=== PATIENT | female | born 1980 | race Hispanic/Latino ===

== ENCOUNTER 2017-04-29 12:02 | Inpatient (IN) | payer BC, MEDICAID ==
[2017-04-29 12:06] VITALS: BMI 22.8
[2017-04-29] MEDS ORDERED: Sodium Chloride 0.9% 1,000 ML IV STA (12:25)
--- NOTE | 2017-04-29 12:28 | ED PDOC ---
Arrival/HPI - General Chief Complaint: Flu-like Symptoms Time Seen by Provider: 04/29/17 12:23 Historian: Patient - History of Present Illness Narrative History of Present Illness (Text): 04/29/17 12:24 36 year old female presents to the Emergency Department complaining of episodic vomiting x3 per day, productive cough with red phlegm, body aches, headache, and fever for 3 days. Patient states her pain is rated at 8/10. 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 Mccauley 04/29/17 13:18 Time/Duration: < week (3 days) Symptom Onset: Gradual Symptom Course: Unchanged Quality: Aching, Tightness Severity Level: 8 Context: Home Past Medical History - Provider Review Nursing Documentation Reviewed: Yes - Travel History Have you recently traveled outside [place] w/in the past 3 mons?: No - Past History Past History: No Previous - Infectious Disease Hx of Infectious Diseases: None - Tetanus Immunization Tetanus Immunization: Unknown - Past Medical History Past Medical History: No Previous - Gastrointestinal Hx Gastroesophageal Reflux: Yes - Genitourinary/Gynecological Other/Comment: endometriosis - Psychiatric Hx Substance Use: No - Past Surgical History Past Surgical History: No Previous - Surgical History Other/Comment: Laparoscopy - Anesthesia Hx Anesthesia: Yes Hx Anesthesia Reactions: No Hx Malignant Hyperthermia: No - Suicidal Assessment Feels Threatened In Home Enviroment: No Family/Social History - Physician Review Nursing Documentation Reviewed: Yes Family/Social History: No Known Family HX Smoking Status: Heavy Smoker > 10 Cigarettes Daily Hx Alcohol Use: No Hx Substance Use: No Hx Substance Use Treatment: Yes Allergies/Home Meds Allergies/Adverse Reactions: Allergies No Known Allergies Allergy (Verified 01/29/14 00:43) Home Medications: Home Meds Medication Instructions Recorded Confirmed Omeprazole [Omeprazole] 1 tab PO BID 04/29/17 04/29/17 Review of Systems - Physician Review All systems were reviewed & negative as marked: Yes - Review of Systems Constitutional: Fatigue, Fevers, Night Sweats Eyes: Normal ENT: Normal Respiratory: Cough, Sputum. absent: SOB Cardiovascular: Other (chest pressure). absent: Chest Pain, Palpitations Gastrointestinal: Vomiting. absent: Diarrhea Genitourinary Female: Normal Musculoskeletal: Myalgias. absent: Back Pain Skin: Normal Neurological: Headache. absent: Dizziness Endocrine: Normal Hemo/Lymphatic: Normal Psychiatric: Normal Physical Exam Vital Signs Reviewed: Yes Vital Signs Temp Pulse Resp BP Pulse Ox 04/29/17 16:43 86 18 103/56 L 97 04/29/17 12:09 98.0 F 100 H 18 123/86 100 Temperature: Afebrile Blood Pressure: Normal Pulse: Tachycardic Respiratory Rate: Normal Appearance: Positive for: Well-Appearing, Non-Toxic, Other (alert/awake, resting in bed, NAD, mildly uncomfortable, cooperative, follows command with ease) Pain Distress: None Mental Status: Positive for: Alert and Oriented X 3 - Systems Exam Head: Present: Atraumatic, Normocephalic Pupils: Present: PERRL, Other (no photophobia, sclera anicteric, no nystagmus) Extroacular Muscles: Present: EOMI Conjunctiva: Present: Normal Ears: Present: Normal Mouth: Present: Dry, Normal Teeth, Other (intact dentitions, no drooling/stridor , no exudate/lesions, uvula/tongue are midline) Pharnyx: Present: Normal Nose (External): Present: Atraumatic Nose (Internal): Present: Normal Inspection Neck: Present: Normal Range of Motion, Trachea Midline, Other (no step off, no nuchal rigidity, no meningeal signs). No: MIDLINE TENDERNESS Respiratory/Chest: Present: Clear to Auscultation, Other (decr breath sounds bilaterally, decr breathing sounds noted to left lung base; no rales/rhonchi/ wheezing; no tachypenia, no belly retractions, no accessory muscle use noted). No: Respiratory Distress, Accessory Muscle Use Cardiovascular: Present: Regular Rate and Rhythm, Normal S1, S2. No: Murmurs Abdomen: Present: Normal Bowel Sounds, Other (thin female, no focal tenderness, no acevedo's sign, no mcburney's point tenderness, no masses/rebound/guarding/ rigidity). No: Tenderness, Distention, Peritoneal Signs Back: Present: Normal Inspection. No: Midline Tenderness Upper Extremity: Present: Normal Inspection, Normal ROM, NORMAL PULSES, Neurovascularly Intact, Capillary Refill < 2s. No: Cyanosis, Edema Lower Extremity: Present: Normal Inspection, NORMAL PULSES, Normal ROM, Neurovascularly Intact, Capillary Refill < 2 s. No: Edema Neurological: Present: GCS=15, CN II-XII Intact, Speech Normal Skin: Present: Warm, Dry, Other (cap refill ~ 1 sec, no ulcerations, no petechiae). No: Rashes Psychiatric: Present: Alert, Oriented x 3, Normal Insight, Normal Concentration Medical Decision Making ED Course and Treatment: 04/29/17 12:25 Impression: 36 year old female presents to the Emergency Department complaining of vomiting , body aches, cough, headache, and fever. r/o infection; unlikely reheumtologic ; ? hemoptysis I have considered all Differential Diagnosis regarding patient's chief medical complaints/clinical findings included but are not limited to: influenza, PNA, bronchospasm, severe GERD? Plan: -- Chest xray -- EKG -- Urinalysis -- Urine test -- Labs -- Toradol, Zofran, Tamiflu, Sodium Chloride IV fluids -- Reassess and disposition 04/29/17 13:22 04/29/17 16:46 pt continues to feel weak/fatigued, persistent headache and chest pain/tightness pt does not feel any improvement after fluids and medications in the ED will recommend patient for admission for PNA pt is made aware of her medical results agrees with admission paging Dr De La Fuente 04/29/17 17:[address] De La Fuente, made aware of pt's medical presentation, agrees with ED mgt/txt/dx; agrees with admission; would like Dr Philip consulted as well Re-evaluation Time: 13:26 Reassessment Condition: Improving,but remains with symptoms - Lab Interpretations Lab Results: 04/29/17 12:40 04/29/17 12:40 Lab Results 04/29/17 12:40: Influenza Typ A,B (EIA) Negative for flu a/b 04/29/17 12:40: Sodium 138, Potassium 3.0 L, Chloride 102, Carbon Dioxide 25, Anion Gap 15, BUN 11, Creatinine 0.5 L, Est GFR ( Amer) > 60, Est GFR ( Non-Af Amer) > 60, Random Glucose 106, Calcium 9.1, Total Bilirubin 0.3, AST 20 , ALT 27, Alkaline Phosphatase 48, Total Protein 7.1, Albumin 3.8, Globulin 3.3 , Albumin/Globulin Ratio 1.1 04/29/17 12:40: Urine Color Yellow, Urine Appearance Sl cloudy, Urine pH 6.5, Ur Specific [place] 1.015, Urine Protein 100 H, Urine Glucose (UA) Negative, Urine Ketones Trace H, Urine Blood Moderate H, Urine Nitrate Negative, Urine Bilirubin Small H, Urine Urobilinogen 1.0 H, Ur Leukocyte Esterase Negative, Urine RBC 10 - 15, Urine WBC 0 - 2, Ur Epithelial Cells 1 - 3, Urine Bacteria Few, Urine HCG, Qual Negative 04/29/17 12:40: WBC 6.9, RBC 4.17, Hgb 12.9, Hct 38.5, MCV 92.3, MCH 30.9, MCHC 33.5, RDW 13.6, Plt Count 210, MPV 10.5, Gran % 71.4 H, Lymph % (Auto) 20.5 L, [place] % (Auto) 7.3 H, Eos % (Auto) 0.7 L, Baso % (Auto) 0.1, Gran # 4.92, Lymph # 1.4, [place] # 0.5, Eos # 0.1, Baso # 0.01 I have reviewed the lab results: Yes Interpretation: Abnormal lab values (decr K; pt is currently menstrating, unlikely UTI) - RAD Interpretation Narrative RAD Interpretations (Text): 04/29/17 16:48 PROCEDURE: CT Chest with contrast (Pulmonary Angiogram) HISTORY: Chest pain and hemoptysis COMPARISON: Plain radiographs from 04/29/2017. TECHNIQUE: Axial computed tomography images were obtained of the chest in the pulmonary arterial phase of enhancement. Coronal and sagittal reformatted images were created and reviewed. Intravenous contrast dose: 100 mL Omnipaque 350 Radiation dose: Total exam DLP = 208.01 mGy-cm. This CT exam was performed using one or more of the following dose reduction techniques: Automated exposure control, adjustment of the mA and/or kV according to patient size, and/or use of iterative reconstruction technique. FINDINGS: PULMONARY ARTERIES: There are no filling defects in the pulmonary arteries to suggest acute pulmonary embolism. AORTA: No aortic aneurysm or dissection. LUNGS: The lungs are well inflated. There is consolidation in the posterior basal segment of the left lower lobe. There is also linear airspace disease in the lateral basal segment likely subsegmental atelectasis. The right lung is clear. There are no endobronchial lesions. PLEURAL SPACES: No pleural effusions or pneumothorax. HEART: The heart is normal in size. No pericardial effusion. LYMPH NODES: No pathologic hilar or mediastinal lymphadenopathy. BONES, CHEST WALL: Within normal limits for the patient's age. No fracture or destructive lesion OTHER FINDINGS: Unremarkable. IMPRESSION: 1. No CT evidence for acute pulmonary embolism. 2. Pneumonia in the posterior basal segment of the left lower lobe. Follow-up after medical management is recommended to ensure complete resolution. 04/29/17 16:49 HISTORY: COMPARISON: No prior. TECHNIQUE: Chest PA and lateral FINDINGS: LINES AND TUBES: None. LUNG AND PLEURA: The lungs are well inflated. There is airspace disease in the left lower lobe. No focal consolidation in the right lung. HEART AND MEDIASTINUM: The heart is not enlarged. The hilar and mediastinal contours are within normal limits. SKELETAL STRUCTURES: The bony structures are within normal limits for the patient's age. VISUALIZED UPPER ABDOMEN: Normal. OTHER FINDINGS: None. IMPRESSION: Airspace disease in the left lower lobe may represent developing pneumonia. Follow-up after medical management is recommended to ensure complete resolution. Radiology Orders: 04/29/17 12:23 CHEST TWO VIEWS (PA/LAT) [RAD] Stat 04/29/17 14:42 ANGIO CHEST PE PROTOCOL [CT] Stat 04/29/2017 14:41:42 Chest PA and lateral FINDINGS: LINES AND TUBES: None. LUNG AND PLEURA: The lungs are well inflated. There is airspace disease in the left lower lobe. No focal consolidation in the right lung. HEART AND MEDIASTINUM: The heart is not enlarged. The hilar and mediastinal contours are within normal limits. SKELETAL STRUCTURES: The bony structures are within normal limits for the patient's age. VISUALIZED UPPER ABDOMEN: Normal. OTHER FINDINGS: None. IMPRESSION: Airspace disease in the left lower lobe may represent developing pneumonia. Follow-up after medical management is recommended to ensure complete resolution. 04/29/2017 15:39:20 CT Chest with contrast (Pulmonary Angiogram) FINDINGS: PULMONARY ARTERIES: There are no filling defects in the pulmonary arteries to suggest acute pulmonary embolism. AORTA: No aortic aneurysm or dissection. LUNGS: The lungs are well inflated. There is consolidation in the posterior basal segment of the left lower lobe. There is also linear airspace disease in the lateral basal segment likely subsegmental atelectasis. The right lung is clear. There are no endobronchial lesions. PLEURAL SPACES: No pleural effusions or pneumothorax. HEART: The heart is normal in size. No pericardial effusion. LYMPH NODES: No pathologic hilar or mediastinal lymphadenopathy. BONES, CHEST WALL: Within normal limits for the patient's age. No fracture or destructive lesion OTHER FINDINGS: Unremarkable. IMPRESSION: 1. No CT evidence for acute pulmonary embolism. 2. Pneumonia in the posterior basal segment of the left lower lobe. Follow-up after medical management is recommended to ensure complete resolution. 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 RAD, no ectopy, diffuse low voltage throughout, inverted T in leads III, non-specific st-t changes noted F, V1-3, BORDERLINE EKG; no old ekg to compare with 04/29/17 13:26 Interpreted by ED Physician: Yes Type: 12 lead EKG Comparison: No previous EKG avail. - Medication Orders Current Medication Orders: Discontinued Medications Albuterol/Ipratropium (Duoneb 3 Mg/0.5 Mg (3 Ml) Ud) 3 ml IH Q15M TAJ Stop: 04/29/17 14:16 Last Admin: 04/29/17 14:35 Dose: 3 ml Sodium Chloride (Sodium Chloride 0.9%) 1,000 mls @ 999 mls/hr IV .Q1H1M STA Stop: 04/29/17 13:25 Last Admin: 04/29/17 12:37 Dose: 999 mls/hr eMAR Start Stop Document 04/29/17 12:37 EQ (Rec: 04/29/17 12:37 EQ [facility] [id number]) Intravenous Solution Start Date 04/29/17 Start Time 12:37 Ceftriaxone Sodium (Rocephin 1 Gram Ivpb) 1 gm in 100 mls @ 200 mls/hr IVPB STAT STA PRN Reason: Protocol Stop: 04/29/17 15:46 Last Admin: 04/29/17 15:46 Dose: 200 mls/hr eMAR Start Stop Document 04/29/17 15:46 EQ (Rec: 04/29/17 15:46 EQ [place] [id number]) Intravenous Solution Start Date 04/29/17 Start Time 15:46 Azithromycin (Zithromax 500mg In Ns) 500 mg in 250 mls @ 167 mls/hr IVPB STAT STA PRN Reason: Protocol Stop: 04/29/17 16:47 Last Admin: 04/29/17 16:34 Dose: 167 mls/hr eMAR Start Stop Document 04/29/17 16:34 EQ (Rec: 04/29/17 16:34 EQ [place] [id number]) Intravenous Solution Start Date 04/29/17 Start Time 16:34 Ibuprofen (Motrin Tab) 400 mg PO STAT STA Stop: 04/29/17 16:47 Ketorolac Tromethamine (Toradol) 30 mg IVP STAT STA Stop: 04/29/17 12:26 Last Admin: 04/29/17 12:37 Dose: 30 mg MAR Pain Assessment Document 04/29/17 12:37 EQ (Rec: 04/29/17 12:37 EQ [place] [id number]) Pain Reassessment Is this a pain reassessment? No Sleep Is patient sleeping during reassessment? No Presence of Pain Presence of Pain Yes IVP Administration Document 04/29/17 12:37 EQ (Rec: 04/29/17 12:37 EQ [place] [id number]) Charges for Administration # of IVP Administrations 1 Ondansetron HCl (Zofran Inj) 4 mg IVP STAT STA Stop: 04/29/17 12:26 Last Admin: 04/29/17 12:37 Dose: 4 mg IVP Administration Document 04/29/17 12:37 EQ (Rec: 04/29/17 12:37 EQ [place] [id number]) Charges for Administration # of IVP Administrations 1 Oseltamivir Phosphate (Tamiflu Cap) 75 mg PO ONCE ONE PRN Reason: Protocol Stop: 04/29/17 12:25 Last Admin: 04/29/17 12:37 Dose: 75 mg Oxycodone/Acetaminophen (Percocet 5/325 Mg Tab) 1 tab PO STAT STA Stop: 04/29/17 16:47 Potassium Chloride (Klor-Con 10) 20 meq PO STAT STA Stop: 04/29/17 13:18 Last Admin: 04/29/17 13:33 Dose: 20 meq - Scribe Statement The provider has reviewed the documentation as recorded by the Sherylibraghav Ho All medical record entries made by the Sherylibe were at my direction and personally dictated by me. I have reviewed the chart and agree that the record accurately reflects my personal performance of the history, physical exam, medical decision making, and the department course for this patient. I have also personally directed, reviewed, and agree with the discharge instructions and disposition. Disposition/Present on Arrival - Present on Arrival Any Indicators Present on Arrival: No History of DVT/PE: No History of Uncontrolled Diabetes: No Urinary Catheter: No History of Decub. Ulcer: No History Surgical Site Infection Following: None - Disposition Have Diagnosis and Disposition been Completed?: Yes Diagnosis: Pneumonia, Dehydration, Hypokalemia Disposition: HOSPITALIZED Disposition Time: 16:49 Patient Plan: Admission, Observation Patient Problems: Current Active Problems Problem Status Onset Pneumonia Acute Dehydration Acute Condition: STABLE Print Language: KAZAKH Additional Instructions: Make sure to see your doctor in 1-2 days DRINK PLENTY OF FLUIDS DONT SMOKE take your medications as prescribed RETURN TO ED IF worse pain, cant breath, persistent vomiting, high fever >101- 102 for hours, altered behavior, unable to urinate, heavy/persistent bleeding, passing out, chest pain, or other medical emergencies Referrals: PCP,NO [Non-Staff] - Follow up with primary Forms: [facility] (French), WORK NOTE
[2017-04-29 12:55] LABS: BASO # 0.01 K/mm3 (0.0-2.0); BASO % 0.1 % (0.0-3.0); EOS # 0.1 (0.0-0.7); EOS % 0.7 % (1.5-5.0); GRAN # 4.92 (1.4-6.5); GRAN % 71.4 % (50.0-68.0); HEMOGLOBIN 12.9 g/dL (12.0-16.0); LYMPH # 1.4 (1.2-3.4); LYMPH % 20.5 % (22.0-35.0); MEAN CELL VOLUME 92.3 fl (80.0-105.0); MEAN CORPUSCULAR HEMOGLOBIN 30.9 pg (25.0-35.0); MEAN CORPUSCULAR HGB CONC 33.5 g/dl (31.0-37.0); MEAN PLATELET VOLUME 10.5 fl (7.0-11.0); MONO # 0.5 (0.1-0.6); MONO % 7.3 % (1.0-6.0); PH,URINE 6.5 (4.7-8.0); RBC 4.17 10^6/uL (3.5-6.1); RED CELL DISTRIBUTION WIDTH 13.6 % (11.5-14.5); URINE BILIRUBIN SMALL (NEGATIVE); URINE BLOOD MODERATE (NEGATIVE); URINE GLUCOSE (UA) NEGATIVE (NEGATIVE); URINE LEUKOCYTE ESTERASE NEGATIVE Leu/uL (NEGATIVE); URINE NITRATE NEGATIVE (NEGATIVE); URINE PROTEIN 100 mg/dL (<30 mg/dL); WHITE BLOOD COUNT 6.9 10^3/ul (4.5-11.0)
[2017-04-29 12:56] LABS: URINE APPEARANCE SL CLOUDY (CLEAR); URINE COLOR YELLOW (YELLOW)
[2017-04-29 13:04] LABS: HCG,QUALITATIVE URINE NEGATIVE (NEGATIVE); URINE BACTERIA FEW (NEG); URINE WBC 0 - 2 /hpf (0-6)
[2017-04-29 13:06] LABS: ALB/GLOB RATIO 1.1 (1.1-1.8); ALBUMIN 3.8 g/dL (3.0-4.8); ALT/SGPT 27 U/L (7-56); AST/SGOT 20 U/L (14-36); BLOOD UREA NITROGEN 11 mg/dL (7-21); CALCIUM 9.1 mg/dL (8.4-10.5); GFR AFRICAN-AMERICAN > 60; GFR NON-AFRICAN AMERICAN > 60
[2017-04-29] MEDS ORDERED: Potassium Chloride 10 mEq ER Tab PO STA (13:17)
[2017-04-29] MEDS: Albuterol-Ipratrop 3 mg / 0.5 (3 ml) UD IH SCH ×3 (14:05→23:43)
--- NOTE | 2017-04-29 14:43 | RAD ---
HISTORY: COMPARISON: No prior. TECHNIQUE: Chest PA and lateral FINDINGS: LINES AND TUBES: None. LUNG AND PLEURA: The lungs are well inflated. There is airspace disease in the left lower lobe. No focal consolidation in the right lung. HEART AND MEDIASTINUM: The heart is not enlarged. The hilar and mediastinal contours are within normal limits. SKELETAL STRUCTURES: The bony structures are within normal limits for the patient's age. VISUALIZED UPPER ABDOMEN: Normal. OTHER FINDINGS: None. IMPRESSION: Airspace disease in the left lower lobe may represent developing pneumonia. Follow-up after medical management is recommended to ensure complete resolution.
[2017-04-29] MEDS ORDERED: Iohexol 350 MG/100 ML VIAL ONE (14:47)
[2017-04-29] MEDS ORDERED: cefTRIAXone 1 gm 1 GM/100 ML BAG IVPB STA (15:17)
[2017-04-29] MEDS ORDERED: Azithromycin 500MG/NS 250ml 500 MG/250 ML BAG IVPB STA (15:18)
--- NOTE | 2017-04-29 15:41 | CT ---
PROCEDURE: CT Chest with contrast (Pulmonary Angiogram) HISTORY: Chest pain and hemoptysis COMPARISON: Plain radiographs from 04/29/2017. TECHNIQUE: Axial computed tomography images were obtained of the chest in the pulmonary arterial phase of enhancement. Coronal and sagittal reformatted images were created and reviewed. Intravenous contrast dose: 100 mL Omnipaque 350 Radiation dose: Total exam DLP = 208.01 mGy-cm. This CT exam was performed using one or more of the following dose reduction techniques: Automated exposure control, adjustment of the mA and/or kV according to patient size, and/or use of iterative reconstruction technique. FINDINGS: PULMONARY ARTERIES: There are no filling defects in the pulmonary arteries to suggest acute pulmonary embolism. AORTA: No aortic aneurysm or dissection. LUNGS: The lungs are well inflated. There is consolidation in the posterior basal segment of the left lower lobe. There is also linear airspace disease in the lateral basal segment likely subsegmental atelectasis. The right lung is clear. There are no endobronchial lesions. PLEURAL SPACES: No pleural effusions or pneumothorax. HEART: The heart is normal in size. No pericardial effusion. LYMPH NODES: No pathologic hilar or mediastinal lymphadenopathy. BONES, CHEST WALL: Within normal limits for the patient's age. No fracture or destructive lesion OTHER FINDINGS: Unremarkable. IMPRESSION: 1. No CT evidence for acute pulmonary embolism. 2. Pneumonia in the posterior basal segment of the left lower lobe. Follow-up after medical management is recommended to ensure complete resolution.
[2017-04-29] MEDS ORDERED: Oxycodone/Acetaminophen 5/325 mg Tab PO STA (16:46)
[2017-04-29] MEDS: guaiFENesin DM 200 mg-20 mg/10 ml UD PO ONE ×2 (17:53→17:54)
--- NOTE | 2017-04-29 19:06 | CARD ---
APPROVED REPORT EKG Measurement Heart [id number] <Conclusion> Normal sinus rhythm Rightward axis Borderline ECG
[2017-04-29] MEDS ORDERED: Pneumococcal 23-Valent Vaccine IM ONE (21:28)
[2017-04-29] MEDS ORDERED: HYDROmorphone 0.5 mg/0.5 ml ISec IVP PRN (21:28)
[2017-04-29] MEDS ORDERED: Influenza Vaccine 60 mcg/0.5 mL SYR (4YR UP) IM ONE (21:28)
[2017-04-29] MEDS: MethylPREDNISolone 40 mg Vial IVP SCH (23:11)
[2017-04-30] MEDS: Albuterol-Ipratrop 3 mg / 0.5 (3 ml) UD IH SCH ×4 (02:23→20:32)
[2017-04-30 08:20] LABS: HEMOGLOBIN 11.3 g/dL (12.0-16.0); MEAN CORPUSCULAR HEMOGLOBIN 30.4 pg (25.0-35.0); MEAN CORPUSCULAR HGB CONC 32.7 g/dl (31.0-37.0); MEAN PLATELET VOLUME 10.2 fl (7.0-11.0); RBC 3.72 10^6/uL (3.5-6.1); RED CELL DISTRIBUTION WIDTH 13.8 % (11.5-14.5); WHITE BLOOD COUNT 5.4 10^3/ul (4.5-11.0)
[2017-04-30] MEDS: Pantoprazole 40 mg EC Tab PO SCH ×2 (08:29→17:11)
[2017-04-30 08:37] LABS: BLOOD UREA NITROGEN 7 mg/dL (7-21); CALCIUM 8.7 mg/dL (8.4-10.5); GFR AFRICAN-AMERICAN > 60; GFR NON-AFRICAN AMERICAN > 60; HDL CHOLESTEROL 23 mg/dL (29-60)
[2017-04-30 08:44] LABS: LDL CHOLESTEROL 92 mg/dL (0-129)
[2017-04-30] MEDS: cefTRIAXone 1 gm 1 GM/100 ML BAG IVPB SCH (11:25)
[2017-04-30] MEDS: MethylPREDNISolone 40 mg Vial IVP SCH ×2 (11:25→22:05)
[2017-04-30] MEDS: Azithromycin 500MG/NS 250ml 500 MG/250 ML BAG IVPB SCH (14:48)
--- NOTE | 2017-05-01 01:09 | CON ---
DATE: 04/30/2017 REFERRING PHYSICIAN: Dr. De La Fuente. REASON FOR CONSULTATION: Cough, shortness of breath, pneumonia. HISTORY OF PRESENT ILLNESS: This is a 36 years old female without any significant past medical history apparently has a episode of vomiting a couple of episode after that she started feeling chest pain, shortness of breath, headache, body aches pain, came into emergency room with severe weakness, fatigue, fever up to 101. No dysuria. No diarrhea. No leg pain or leg swelling. Denied any sick contacts. PAST MEDICAL HISTORY: No significant cardiopulmonary disease reported other than history of GERD and laparoscopy. SOCIAL HISTORY: Positive history of smoking. No history of alcohol use. FAMILY HISTORY: No significant cardiopulmonary disease reported. ALLERGIES: NONE KNOWN. MEDICATIONS: She is on Dilaudid 0.5 mg q. 4 hours p.r.n., DuoNeb q. 6 hours, Protonix 40 mg a.c., Rocephin 1 gm IV daily, Solu-Medrol 40 mg q. 12 hours, Tamiflu 75 mg twice a day, Tylenol p.r.n., Zithromax 500 mg daily, Zofran p.r.n. basis. REVIEW OF SYSTEMS: Has headache. No rhinitis. No nausea at present time. Has some chest pain. No abdominal pain. No dysuria. No leg pain or leg swelling. PHYSICAL EXAMINATION: GENERAL: Lying in the bed, no acute distress. VITAL SIGNS: Temperature is 98, heart rate is 90, respiratory rate is 20, blood pressure 119/60, pulse ox 98% room air. HEENT: Moist mucous membranes. Crowded airway. NECK: Supple. No JVD. LUNGS: Has a fair airflow with few rhonchi. HEART: S1 and S2. ABDOMEN: Soft, nontender. No organomegaly. EXTREMITIES : No edema. NEUROLOGICAL: The patient follows simple commands. LABORATORY DATA: Shows hemoglobin 11.3, hematocrit 34.6, WBC 5.4, platelet is 179. Sodium 140, potassium 4.2, chloride 105, bicarbonate 24, BUN 7, creatinine 0.5, glucose 167, hemoglobin A1c 6.0, calcium 8.7, cholesterol is 131. TSH 0.36. CAT scan of the chest is done, which shows no pulmonary embolism, pneumonia in the posterior basal segment of the left lower lobe. IMPRESSION AND PLAN: Probably had viral syndrome end up with vomiting end up with aspiration pneumonia. She is a smoker though. Even though influenza swab is negative but very high suspicious for influenza. Will continue Tamiflu, continue antibiotics. May cut down Solu-Medrol. Gastric prophylaxis. Make sure we get a test. Spoke about smoking and its risk, urged the patient to stop smoking. Thank you and we will follow with you. Joy Philip MD
[2017-05-01] MEDS: Albuterol-Ipratrop 3 mg / 0.5 (3 ml) UD IH SCH ×4 (02:30→20:25)
[2017-05-01 07:33] LABS: HEMOGLOBIN 11.6 g/dL (12.0-16.0); MEAN CELL VOLUME 92.8 fl (80.0-105.0); MEAN CORPUSCULAR HEMOGLOBIN 29.7 pg (25.0-35.0); MEAN PLATELET VOLUME 10.4 fl (7.0-11.0); RBC 3.91 10^6/uL (3.5-6.1); RED CELL DISTRIBUTION WIDTH 14.3 % (11.5-14.5); WHITE BLOOD COUNT 8.4 10^3/ul (4.5-11.0)
[2017-05-01 07:40] LABS: IRON 114 ug/dL (45-180)
[2017-05-01 07:43] LABS: BLOOD UREA NITROGEN 8 mg/dL (7-21); GFR AFRICAN-AMERICAN > 60; GFR NON-AFRICAN AMERICAN > 60; HDL CHOLESTEROL 26 mg/dL (29-60)
[2017-05-01 07:49] LABS: % IRON SATURATION 36 % (20-55); TOTAL IRON BINDING CAPACITY 316 ug/dL (265-497)
[2017-05-01 07:54] LABS: LDL CHOLESTEROL 116 mg/dL (0-129)
--- NOTE | 2017-05-01 08:19 | HP ---
CHIEF COMPLAINT: Flu-like symptoms. HISTORY OF PRESENT ILLNESS: The patient is a 36 years old female, came to the emergency room department, complaining of episodic vomiting for 3 days, productive cough with red phlegm, body aches, headache, fever for 3 days. The patient states her pain is like 8/10, decreased appetite, severe fatigued and tired. Positive chills and sweats. Positive chest tightness and shortness of breath. No hematuria or hematochezia. No palpations. No abdominal pain. No numbness or tingling or urinary symptoms. The patient has no bowel movements since 2 to 3 days. Tolerating liquid. No fall. PAST MEDICAL HISTORY: Noncontributory. ALLERGIES: NO KNOWN ALLERGIES. HOME MEDICATIONS: Omeprazole. FAMILY HISTORY: Father and mother noncontributory. HABITS: No smoking. No drugs. History of substance abuse. REVIEW OF SYSTEMS: The patient was seen and examined on the bedside in her room, lying down comfortably, sometime coughing, feeling fatigue and tired, feverish, night sweats. The cough is positive. Sputum is positive. Chest pressure with coughing. No palpitation. The patient has vomiting, but no diarrhea. Has myalgia, had headache. No dizziness. PHYSICAL EXAMINATION: VITAL SIGNS: Temperature 97.6, pulse 90, blood pressure 190/60, and respiratory rate 20. HEENT: Head is normocephalic and atraumatic. Eyes: PERRLA. Extraocular muscles are intact. Conjunctivae are clear. Nose is patent. Mucous membranes are moist. NECK: Supple. No carotid bruits. No thyromegaly. CHEST: Bilaterally symmetrical. HEART: S1 and S2 positive. LUNGS: Clear to auscultation. ABDOMEN: Soft. Bowel sound present. No organomegaly. EXTREMITIES: No edema. No cyanosis. NEUROLOGIC: The patient is awake and alert. Moving all four extremities. No focal deficits. LABORATORY DATA: White blood cell 5.4, hemoglobin 11.3, hematocrit 34.6, and platelets 179. Sodium 140, potassium 4.2, BUN 7, creatinine 0.5, and glucose 167. ASSESSMENT AND PLAN: The patient is 36-year-old lady with anemia; history of hypokalemia, replaced; hyperglycemia; rule out hyperthyroidism; proteinuria; ketonuria; hematuria; urinary tract infection, influenza type B is negative. CAT scan of the chest was done. It has showed no CT evidence of acute pulmonary embolism. Pneumonia in the posterior basal segment of the left lower lobe. Followup after medical treatment is recommended to ensure complete resolution. that the patient has started on pain medication, DuoNeb. Potassium was given to replace the potassium, Protonix given. Antibiotics of ceftriaxone and methylprednisolone started. The patient is getting azithromycin also, Zofran, inhaled bronchodilators, seen by Dr. 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 Continue treatment with labs. We will follow. Nancy De La Fuente MD MTDD
[2017-05-01] MEDS: Pantoprazole 40 mg EC Tab PO SCH ×2 (11:00→18:48)
[2017-05-01] MEDS: MethylPREDNISolone 40 mg Vial IVP SCH (11:00)
[2017-05-01] MEDS: cefTRIAXone 1 gm 1 GM/100 ML BAG IVPB SCH (11:01)
[2017-05-01 13:34] LABS: FOLATE 5.4 ng/mL
[2017-05-01] MEDS: Azithromycin 500MG/NS 250ml 500 MG/250 ML BAG IVPB SCH (14:43)
[2017-05-01] MEDS ORDERED: HYDROmorphone 0.5 mg/0.5 ml ISec IVP PRN (21:29)
[2017-05-02] MEDS: Albuterol-Ipratrop 3 mg / 0.5 (3 ml) UD IH SCH ×3 (03:15→13:28)
--- NOTE | 2017-05-02 04:11 | PN ---
DATE: 05/01/2017 REFERRING PHYSICIAN: Nancy De La Fuente MD SUBJECTIVE: The patient is lying in the bed, head at 45 degrees, friend is at bedside. Night was unremarkable. Still have cough and shortness of breath. No nausea. No vomiting. No diarrhea. No leg pain or leg swelling. OBJECTIVE: GENERAL: In no acute distress. VITAL SIGNS: Temperature is 98, heart rate is 82, respiratory rate is 20, blood pressure is 111/67, and pulse oximetry is 97% on room air. HEENT: Moist mucous membranes. No ulcer or thrush noted. NECK: Supple. No JVD. LUNGS: Have diffuse scattered rhonchi. HEART: S1 and S2. ABDOMEN: Soft and nontender. No organomegaly. EXTREMITIES: No edema. NEUROLOGIC: Awake, alert, follows simple commands. MEDICATIONS: She is on Dilaudid 0.25 mg q.8 hours p.r.n., DuoNeb q.6 hours, Protonix 40 mg daily, Rocephin 1 gm daily, Solu-Medrol 10 mg q.12 hours, Tamiflu 75 mg twice a day, Tylenol p.r.n., Zithromax 500 mg daily. LABORATORY DATA: Shows hemoglobin 11.6, hematocrit 36.3, WBC 8.4, platelet is 226. Sodium 141, potassium 4.2, chloride 107, bicarbonate 26, BUN 8, creatinine 0.5, calcium 9.0, cholesterol is 146, TSH is 0.26. ASSESSMENT AND PLAN: Probably viral syndrome related to pneumonia. Pulmonary point of view, doing okay. Continue p.o. and inhaled bronchodilator. Keep head at 45 degrees. Continue antibiotics, gastric prophylaxis, sequential compression device to lower extremities. Thank you and we will follow with you. Joy Philip MD
--- NOTE | 2017-05-02 09:07 | PN ---
DATE: 05/01/2017 The patient is 36-year-old female. SUBJECTIVE: The patient is seen and examined on the bedside, looking comfortable. No nausea, vomiting, diarrhea. Cough is better, shortness of breath is better. No headache. No dizziness. PHYSICAL EXAMINATION: VITAL SIGNS: Temperature 97.8, pulse 80, blood pressure 111/64 and respiratory rate 18. HEENT: Head normocephalic and atraumatic. Eyes, PERRLA. Extraocular muscles are intact. Conjunctivae are clear. Nose patent. Mucous membranes moist. NECK: Supple. No carotid bruits. No JVD, thyromegaly. CHEST: Bilateral symmetrical. HEART: S1, S2 positive. LUNGS: Clear to auscultation. ABDOMEN: Soft. Bowel sounds present. No organomegaly. EXTREMITIES: No edema. No cyanosis. NEUROLOGICAL: The patient is awake and alert. Moving all 4 extremities. No focal deficits. LABORATORY DATA: White blood cell is 8.4, hemoglobin 11.6, hematocrit 36.3, and platelets 226. Sodium 141, potassium 4.2, BUN 18, and creatinine 0.5. Glucose 125. MEDICATIONS: Dilaudid, DuoNeb, Protonix, Rocephin, Solu-Medrol, Tamiflu, Tylenol, azithromycin, and Zofran. ASSESSMENT AND PLAN: The patient is 36 years old lady with anemia, hyperglycemia, history of gastroesophageal reflux disease, dyspepsia, probably had viral syndrome ending up in the vomiting with the aspiration pneumonia. She is a heavy smoker even though influenza swab is negative, but very high suspicious of influenza. We will continue Tamiflu. Continue antibiotics. Tapering on steroids. Gastric prophylaxis. Asked her to quit smoking , CAT scan of the chest is done. No CT evidence of acute pulmonary embolism. Pneumonia in the posterior basal segment of the left lower lobe. Followup after medical management is recommended to ensure the complete resolution of the pneumonia. The patient is getting albuterol, Protonix, ceftriaxone, methylprednisolone tapering doses, Tamiflu, Tylenol, Azithromycin, Zofran. We will cut down the pain medication. Repeat labs. We will follow up. Nancy De La Fuente MD [facility] # [id number] MTDKatie
[2017-05-02] MEDS: Pantoprazole 40 mg EC Tab PO SCH ×2 (11:06→17:40)
[2017-05-02] MEDS: cefTRIAXone 1 gm 1 GM/100 ML BAG IVPB SCH (11:12)
[2017-05-02] MEDS: MethylPREDNISolone 40 mg Vial IVP SCH ×2 (11:13→23:31)
[2017-05-02 16:52] VITALS: RESP 20
--- NOTE | 2017-05-02 19:24 | CP.PCM.PN ---
<Rosemary Sosa - Last Filed: 05/02/17 19:21> Subjective - Date & Time of Evaluation Date of Evaluation: 05/02/17 Time of Evaluation: 11:40 - Subjective Subjective: 36 yr female w/ history of GERD, endometriosis, & heavy smoking. She reports pain in the chest related to cough at night. She denies headache, fever , chills, n/v, diarrhea, constipation or urinary changes. Objective - Vital Signs/Intake and Output Vital Signs (last 24 hours): Temp Pulse Resp BP Pulse Ox 97.9 F 72 20 112/75 98 05/02/17 16:51 05/02/17 16:51 05/02/17 16:51 05/02/17 16:51 05/02/17 16:51 Intake and Output: 05/02/17 05/03/17 18:59 06:59 Intake Total 780 Balance 780 - Medications Medications: Current Medications Acetaminophen (Tylenol 325mg Tab) 650 mg PO Q4H PRN PRN Reason: pain fever Albuterol/Ipratropium (Duoneb 3 Mg/0.5 Mg (3 Ml) Ud) 3 ml IH [id number] [facility] Last Admin: 05/02/17 13:28 Dose: 3 ml Azithromycin (Zithromax) 500 mg PO DAILY [facility] Benzonatate (Tessalon Perles) 100 mg PO TID [facility] Last Admin: 05/02/17 17:40 Dose: 100 mg Fluticasone Propionate (Flonase) 1 actuation NS Q12 [facility] Ceftriaxone Sodium (Rocephin 1 Gram Ivpb) 1 gm in 100 mls @ 100 mls/hr IVPB DAILY [facility] PRN Reason: Protocol Stop: 05/04/17 10:59 Last Admin: 05/02/17 11:12 Dose: 100 mls/hr Loratadine (Claritin) 10 mg PO DAILY [facility] Last Admin: 05/02/17 17:40 Dose: 10 mg Methylprednisolone (Solu-Medrol) 10 mg IVP Q12 [facility] Last Admin: 05/02/17 11:13 Dose: 10 mg Montelukast Sodium (Singulair) 10 mg PO HS [facility] Oseltamivir Phosphate (Tamiflu Cap) 75 mg PO BID [facility] PRN Reason: Protocol Stop: 05/04/17 21:27 Last Admin: 05/02/17 17:41 Dose: 75 mg Pantoprazole Sodium (Protonix Ec Tab) 40 mg PO ACBD [facility] Last Admin: 05/02/17 17:40 Dose: 40 mg Tramadol HCl (Ultram) 50 mg PO TID PRN PRN Reason: Pain, moderate (4-7) - Labs Labs: 05/01/17 06:45 05/01/17 06:45 - Constitutional Appears: Well - Head Exam Head Exam: ATRAUMATIC, NORMAL INSPECTION, NORMOCEPHALIC - Eye Exam Eye Exam: EOMI, Normal appearance, PERRL Pupil Exam: NORMAL ACCOMODATION, PERRL - Neck Exam Neck Exam: Full ROM, Normal Inspection. absent: Lymphadenopathy - Respiratory Exam Respiratory Exam: Clear to Ausculation Bilateral, NORMAL BREATHING PATTERN - Cardiovascular Exam Cardiovascular Exam: REGULAR RHYTHM, +S1, +S2. absent: Murmur - GI/Abdominal Exam GI & Abdominal Exam: Soft, Normal Bowel Sounds. absent: Tenderness - Back Exam Back Exam: NORMAL INSPECTION - Neurological Exam Neurological Exam: Alert, Awake, CN II-XII Intact, Normal Gait, Oriented x3 - Psychiatric Exam Psychiatric exam: Normal Affect, Normal Mood - Skin Skin Exam: Dry, Intact, Normal Color, Warm Assessment and Plan (1) Proteinuria Status: Acute (2) Hematuria Status: Acute (3) Anemia Status: Acute (4) Hypothyroid Status: Acute (5) Hyperglycemia Status: Acute (6) Dehydration Status: Acute (7) Hypokalemia Status: Acute (8) Pneumonia Status: Acute - Assessment and Plan (Free Text) Plan: Labs ordered. Repeat UA, C&S. Isolation: Droplet precautions. IV azithromycin. IV rochepin. IV solumedryl. Tamiflu PO. GI/VTE prophlyaxis. Pain management plan: tramadol PRN Consults: Pulm = Dr. Philip Reviewed: ECG = BORDERLINE, NSR, Rightward axis CT chest = Pneumonia L Lower Lobe. CXR = airspace disease in the L lower lobe (developing pneumonia) <Nancy De La Fuente - Last Filed: 05/02/17 23:21> Objective - Vital Signs/Intake and Output Vital Signs (last 24 hours): Temp Pulse Resp BP Pulse Ox 97.9 F 72 20 112/75 98 05/02/17 16:51 05/02/17 16:51 05/02/17 16:51 05/02/17 16:51 05/02/17 16:51 Intake and Output: 05/02/17 05/03/17 18:59 06:59 Intake Total 780 420 Balance 780 420 - Medications Medications: Current Medications Acetaminophen (Tylenol 325mg Tab) 650 mg PO Q4H PRN PRN Reason: pain fever Albuterol/Ipratropium (Duoneb 3 Mg/0.5 Mg (3 Ml) Ud) 3 ml IH [id number] [facility] Last Admin: 05/02/17 13:28 Dose: 3 ml Azithromycin (Zithromax) 500 mg PO DAILY [facility] Benzonatate (Tessalon Perles) 100 mg PO TID [facility] Last Admin: 05/02/17 17:40 Dose: 100 mg Fluticasone Propionate (Flonase) 1 actuation NS Q12 [facility] Ceftriaxone Sodium (Rocephin 1 Gram Ivpb) 1 gm in 100 mls @ 100 mls/hr IVPB DAILY [facility] PRN Reason: Protocol Stop: 05/04/17 10:59 Last Admin: 05/02/17 11:12 Dose: 100 mls/hr Loratadine (Claritin) 10 mg PO DAILY [facility] Last Admin: 05/02/17 17:40 Dose: 10 mg Methylprednisolone (Solu-Medrol) 10 mg IVP Q12 [facility] Last Admin: 05/02/17 11:13 Dose: 10 mg Montelukast Sodium (Singulair) 10 mg PO HS [facility] Oseltamivir Phosphate (Tamiflu Cap) 75 mg PO BID [facility] PRN Reason: Protocol Stop: 05/04/17 21:27 Last Admin: 05/02/17 17:41 Dose: 75 mg Pantoprazole Sodium (Protonix Ec Tab) 40 mg PO ACBD [facility] Last Admin: 05/02/17 17:40 Dose: 40 mg Tramadol HCl (Ultram) 50 mg PO TID PRN PRN Reason: Pain, moderate (4-7) - Labs Labs: 05/01/17 06:45 05/01/17 06:45 Assessment and Plan - Assessment and Plan (Free Text) Plan: pt is seen and examined at bed side , agreed all above . will f.u
--- NOTE | 2017-05-02 19:43 | PN ---
PULMONARY PROGRESS NOTE DATE: 05/02/2017 REFERRING PHYSICIAN: Nancy De La Fuente MD SUBJECTIVE: The patient is lying in the bed, head at 45 degrees, still has a cough, rhinitis, stuffy nose, and muscular type pain. No nausea. No vomiting, diarrhea, leg pain, or leg swelling. OBJECTIVE: GENERAL: In no acute distress. VITAL SIGNS: Temperature is 98, heart rate is 82, respiratory rate is 18, blood pressure is 114/72, and pulse oximetry is 97% on room air. HEENT: Moist mucous membranes. No ulcer or thrush noted. Nasal mucosa mildly erythematous. LUNGS: Has scattered rhonchi. HEART: S1 and S2. ABDOMEN: Soft and nontender. No organomegaly. EXTREMITIES: There is no edema. NEUROLOGIC: Awake, alert, and follows simple commands. MEDICATIONS: She is on DuoNeb q.6 hours, Protonix 40 mg a.c. b.d., Rocephin 1 g daily, Solu-Medrol 10 mg q.12 hours, Tamiflu 75 mg twice a day, Tessalon Perles 100 mg three times a day, Tylenol p.r.n., Ultram 50 mg three times a day, and Zithromax 500 mg daily. LABORATORY DATA: Reviewed. No new labs are available since yesterday. IMPRESSION AND PLAN: Community-acquired pneumonia, probably had a viral syndrome, and continue IV and inhaled bronchodilator. We will add Singulair, antihistamine, Flonase. Gastric prophylaxis. Sequential compression device to lower extremities. Thank you and we will follow with you. Joy Philip MD
[2017-05-02] MEDS: Fluticasone Nasal 50 mcg/Spray NS SCH (23:31)
[2017-05-03] MEDS: Albuterol-Ipratrop 3 mg / 0.5 (3 ml) UD IH SCH ×3 (05:15→13:56)
[2017-05-03 06:01] LABS: URINE BILIRUBIN NEGATIVE (NEGATIVE); URINE BLOOD NEGATIVE (NEGATIVE); URINE GLUCOSE (UA) NEGATIVE (NEGATIVE); URINE LEUKOCYTE ESTERASE NEGATIVE Leu/uL (NEGATIVE); URINE NITRATE NEGATIVE (NEGATIVE); URINE PROTEIN NEGATIVE mg/dL (<30 mg/dL); URINE UROBILINOGEN 0.2 E.U./dL (<1 E.U./dL)
[2017-05-03 06:02] LABS: URINE APPEARANCE CLEAR (CLEAR); URINE COLOR YELLOW (YELLOW)
[2017-05-03 09:12] VITALS: BP 106/64; PULSE 78; TEMP 98; O2SAT 97
[2017-05-03] MEDS: Fluticasone Nasal 50 mcg/Spray NS SCH (11:15)
[2017-05-03] MEDS: cefTRIAXone 1 gm 1 GM/100 ML BAG IVPB SCH (11:16)
[2017-05-03] MEDS: Pantoprazole 40 mg EC Tab PO SCH (11:16)
[2017-05-03] MEDS: MethylPREDNISolone 40 mg Vial IVP SCH ×2 (11:17→11:18)
== END 2017-05-03 14:14 | disposition home or self-care (01) | DRG 179 ==
LOC: ED 12:02 → ERH 17:10 → 5RSO 20:25 → OBSVTOIN 04-30 22:28
PROVIDERS: ADMIT Internal Medicine; ATTEND Internal Medicine
DX: J69.0 Pneumonitis due to inhalation of food and vomit (principal); B34.9 Viral infection, unspecified; D64.9 Anemia, unspecified; E03.9 Hypothyroidism, unspecified; E86.0 Dehydration; E87.6 Hypokalemia; F17.200 Nicotine dependence, unspecified, uncomplicated; J31.0 Chronic rhinitis; K21.9 Gastro-esophageal reflux disease without esophagitis

== ENCOUNTER 2018-02-06 21:18 | Emergency (ER) | payer BC ==
[2018-02-06 21:43] VITALS: TEMP 97.5; O2SAT 100; BMI 23.1
--- NOTE | 2018-02-06 21:53 | ED PDOC ---
Arrival/HPI - General Historian: Patient - Critical Care Critical Care Minutes: 30 minutes - History of Present Illness Narrative History of Present Illness (Text): 02/06/18 21:48 37 year old female with a past medical history of copd, hyperthyroidism, pneumonia, hidrenitits and uti comes in today for ankle throbbing for the past three weeks. Patient rates the throbbing a 4/10 in severity and denies taking anything for the symptoms. She denies any recent trauma or accident to the area. Patient also reports her heart racing since 1 p.m. this afternoon. Patient states she was sitting at home when the symptoms began. Patient reports this being the first occurrence of this problem. She denies any chest pain, fevers, chills, recent travel, nausea, vomiting, constipation, syncopal episodes, or any other complaints. PMD: Dr. Parker Past medical history: copdk, hyperthyroidism, pneumonia, hidrneitits, uti Medications: Symbicort, Augmentin Allergies: Denies Social history: Smoke 1ppd x 20 years. Denies alcohol or illicit drug use Surgical history: Laproscopic procedure for endometriosis. Time/Duration: > week Symptom Onset: Gradual Symptom Course: Unchanged Quality: Throbbing Severity Level: 4 Activities at Onset: Rest Context: Sitting <Elpidio Vasquez - Last Filed: 02/07/18 00:13> <Iam Coronel - Last Filed: 02/07/18 05:50> - General Chief Complaint: Lower Extremity Problem/Injury Time Seen by Provider: 02/06/18 21:20 Past Medical History - Provider Review Nursing Documentation Reviewed: Yes - Past History Past History: No Previous - Infectious Disease Hx of Infectious Diseases: None - Tetanus Immunization Tetanus Immunization: Unknown - Past Medical History Past Medical History: No Previous - Pulmonary Hx Asthma: Yes - Musculoskeletal/Rheumatological Hx Falls: No - Gastrointestinal Hx Gastroesophageal Reflux: Yes - Genitourinary/Gynecological Other/Comment: endometriosis - Psychiatric Hx Substance Use: No - Past Surgical History Past Surgical History: No Previous - Surgical History Other/Comment: Laparoscopy - Anesthesia Hx Anesthesia: Yes Hx Anesthesia Reactions: No Hx Malignant Hyperthermia: No - Suicidal Assessment Feels Threatened In Home Enviroment: No <Elpidio Vasquez - Last Filed: 02/07/18 00:13> Family/Social History Family/Social History: No Known Family HX Smoking Status: Heavy Smoker > 10 Cigarettes Daily Hx Alcohol Use: No Hx Substance Use: No Hx Substance Use Treatment: Yes <ChristinaRahatSandwich - Last Filed: 02/07/18 00:13> Allergies/Home Meds <Rahat Vasquezaan - Last Filed: 02/07/18 00:13> <Iam Coronel - Last Filed: 02/07/18 05:50> Allergies/Adverse Reactions: Allergies No Known Allergies Allergy (Verified 02/06/18 21:32) Home Medications: Home Meds Medication Instructions Recorded Confirmed RX: No Known Home Med 02/06/18 02/06/18 Review of Systems - Review of Systems Constitutional: Normal. absent: Fatigue, Weight Change, Night Sweats Eyes: Normal. absent: Vision Changes, Photophobia ENT: Normal. absent: Hearing Changes, Tinnitus, Rhinorrhea Respiratory: Normal. absent: SOB, Cough, Sputum Cardiovascular: Other (Racing heartbeat) Gastrointestinal: Normal. absent: Abdominal Pain, Vomiting, Appetite Changes, Food Intolerance Genitourinary Female: Normal. absent: Dysuria, Frequency, Vaginal Discharge Musculoskeletal: Normal. absent: Arthralgias, Back Pain Skin: Normal. absent: Rash, Pruritis, Other Neurological: Normal. absent: Headache, Dizziness, Facial Droop Hemo/Lymphatic: Normal. absent: Adenopathy, Easy Bleeding Psychiatric: Normal. absent: Anxiety, Depression <Marck Vasquezn - Last Filed: 02/07/18 00:13> Physical Exam Vital Signs Temp Pulse Resp BP Pulse Ox 02/06/18 21:33 97.5 F L 93 H 18 131/87 100 Temperature: Afebrile Blood Pressure: Normal Pulse: Tachycardic Respiratory Rate: Normal Appearance: Positive for: Well-Appearing, Non-Toxic, Comfortable Pain Distress: None Mental Status: Positive for: Alert and Oriented X 3. No: Confused, Agitated - Systems Exam Head: Present: Atraumatic, Normocephalic. No: Abrasion Pupils: Present: PERRL. No: Sluggish Extroacular Muscles: Present: EOMI. No: Gaze Palsy Conjunctiva: Present: Normal. No: Injected Ears: No: Erythema Mouth: Present: Moist Mucous Membranes. No: Dry, Normal Teeth Neck: Present: Normal Range of Motion. No: Meningeal Signs, JVD, Lymphadenopathy Respiratory/Chest: Present: Clear to Auscultation, Good Air Exchange. No: Wheezes, Tachypneic Cardiovascular: Present: Normal S1, S2, Tachycardic Abdomen: Present: Distention, Normal Bowel Sounds. No: Guarding, McBurney's Point Tender, Feeding Tubes Upper Extremity: Present: Normal Inspection. No: Cyanosis, Edema Lower Extremity: Present: Normal Inspection. No: Edema, Shayy's Sign, Temperature Abnormalties Neurological: Present: CN II-XII Intact, Speech Normal Skin: Present: Dry, Normal Color Psychiatric: Present: Alert, Oriented x 3, Normal Insight <Elpidio Vasquez - Last Filed: 02/07/18 00:13> Vital Signs Temp Pulse Resp BP Pulse Ox 02/06/18 21:33 97.5 F L 93 H 18 131/87 100 <Iam Coronel - Last Filed: 02/07/18 05:50> Medical Decision Making ED Course and Treatment: 02/06/18 21:58 37 year old female with a past medical history of copd, hyperthryoidism, uti, and pneumonia presents for left ankle throbbing for three weeks. Plan: CBC CMP d-dimer Left foot xray TSH EKG 02/06/18 22:50 D-dimer <200 02/06/18 23:52 LE ultrasound : Negative 02/07/18 00:00 Foot xray : negative for acute fractures or dislocations. 02/07/18 00:10 - RAD Interpretation Radiology Orders: 02/06/18 21:42 FOOT LEFT 3 VIEWS ROUTINE [RAD] Stat 02/06/18 21:44 DUPLEX LOWER EXTRM VEIN LEFT [US] Stat <Elpidio Vasquez - Last Filed: 02/07/18 00:13> - Lab Interpretations Lab Results: 02/06/18 21:59 02/06/18 21:59 Lab Results 02/06/18 21:59: D-Dimer, Quantitative < 200 02/06/18 21:59: TSH 3rd Generation 2.83 02/06/18 21:59: Sodium 137, Potassium 3.7, Chloride 103, Carbon Dioxide 25, Anion Gap 13, BUN 12, Creatinine 0.6 L, Est GFR ( Amer) > 60, Est GFR (Non-Af Amer) > 60, Random Glucose 125 H, Calcium 8.8, Total Bilirubin 0.3, AST 22, ALT 26, Alkaline Phosphatase 49, Total Protein 7.4, Albumin 4.5, Globulin 2.9, Albumin/Globulin Ratio 1.6 02/06/18 21:59: WBC 7.0, RBC 4.45, Hgb 14.3 D, Hct 42.7, MCV 96.0 D, MCH 32.1, MCHC 33.5, RDW 13.3, Plt Count 256, MPV 9.8, Gran % 68.4 H, Lymph % (Auto) 24.2, [place] % (Auto) 5.7, Eos % (Auto) 1.6, Baso % (Auto) 0.1, Gran # 4.78, Lymph # (Auto) 1.7, [place] # (Auto) 0.4, Eos # (Auto) 0.1, Baso # (Auto) 0.01 - RAD Interpretation Radiology Orders: 02/06/18 21:42 FOOT LEFT 3 VIEWS ROUTINE [RAD] Stat 02/06/18 21:44 DUPLEX LOWER EXTRM VEIN LEFT [US] Stat <Iam Coronel - Last Filed: 02/07/18 05:50> - PA / WEB APPLICATION TESTER / Resident Statement MD/DO has reviewed & agrees with the documentation as recorded. MD/DO has examined the patient and agrees with the treatment plan. - Scribe Statement The provider has reviewed the documentation as recorded by the Scribe Patient Seen with Resident: In agreement with resident note which contains more details about the patient. Patient seen and evaluated with resident. Came up with plan and treatment together. <Iam Coronel - Last Filed: 02/07/18 05:50> Disposition/Present on Arrival - Present on Arrival Any Indicators Present on Arrival: No History of DVT/PE: No History of Uncontrolled Diabetes: No Urinary Catheter: No History of Decub. Ulcer: No History Surgical Site Infection Following: None - Disposition Have Diagnosis and Disposition been Completed?: Yes Disposition Time: 00:13 Patient Plan: Discharge <Elpidio Vasquez - Last Filed: 02/07/18 00:13> <Iam Coronel - Last Filed: 02/07/18 05:50> - Disposition Diagnosis: Foot pain, left Disposition: HOME/ ROUTINE Condition: GOOD Additional Instructions: 1. F/u with PMD within 2 to 3 days of discharge. 2. Rest, ice, elevation of the left ankle. 3. F/u with Orthopedics within 1 week of discharge. 4. Return to hospital for any new or worsening symptoms. Referrals: Nancy De La Fuente MD [Primary Care Provider] - Follow up with primary Anat Gupta MD [Staff Provider] - Follow up with primary Forms: [employer] ([place])
[2018-02-06 22:13] LABS: BASO # 0.01 K/mm3 (0.0-2.0); BASO % 0.1 % (0.0-3.0); EOS # 0.1 (0.0-0.7); EOS % 1.6 % (1.5-5.0); GRAN # 4.78 (1.4-6.5); GRAN % 68.4 % (50.0-68.0); HEMOGLOBIN 14.3 g/dL (12.0-16.0); LYMPH # 1.7 (1.2-3.4); LYMPH % 24.2 % (22.0-35.0); MEAN CORPUSCULAR HEMOGLOBIN 32.1 pg (25.0-35.0); MEAN CORPUSCULAR HGB CONC 33.5 g/dl (31.0-37.0); MEAN PLATELET VOLUME 9.8 fl (7.0-11.0); MONO # 0.4 (0.1-0.6); MONO % 5.7 % (1.0-6.0); RBC 4.45 10^6/uL (3.5-6.1); RED CELL DISTRIBUTION WIDTH 13.3 % (11.5-14.5)
[2018-02-06 22:19] LABS: ALB/GLOB RATIO 1.6 (1.1-1.8); ALBUMIN 4.5 g/dL (3.0-4.8); ALT/SGPT 26 U/L (7-56); AST/SGOT 22 U/L (14-36); BLOOD UREA NITROGEN 12 mg/dL (7-21); CALCIUM 8.8 mg/dL (8.4-10.5); GFR NON-AFRICAN AMERICAN > 60
[2018-02-07 00:31] VITALS: BP 127/70; PULSE 88; RESP 17
--- NOTE | 2018-02-07 09:26 | US ---
PROCEDURE: Left lower extremity venous US HISTORY: Leg pain and swelling. Evaluate for DVT. PHYSICIAN(S): Vish Walker MD. TECHNIQUE: Duplex sonography and color-flow Doppler with graded compression were used to evaluate the deep venous system of the left lower extremity. FINDINGS: The visualized deep venous system of the left lower extremity is sonographically normal and compressible. Normal wave forms and augmentation are seen. There is no sonographic evidence for deep venous thrombosis in the visualized segments of the left lower extremity. IMPRESSION: 1. No sonographic evidence for deep venous thrombosis in the visualized segments of the left lower extremity.
--- NOTE | 2018-02-07 09:46 | RAD ---
Date of service: 02/06/2018 PROCEDURE: Left Foot Radiographs. HISTORY: foot pain COMPARISON: None. FINDINGS: BONES: Bone alignment and mineralization are normal. There is no acute displaced fracture or bone destruction. JOINTS: Normal. SOFT TISSUES: Normal. OTHER FINDINGS: None. IMPRESSION: No acute fracture or dislocation.
== END 2018-02-07 00:26 | disposition home or self-care (01) ==
LOC: ED 21:18
DX: M79.672 Pain in left foot (principal)

== ENCOUNTER 2018-05-11 10:15 | Outpatient (CLI) | payer BC | END 2018-05-11 10:16 | disposition home or self-care (01) | LOC: RAD 10:15 | DX: Z12.31 Encounter for screening mammogram for malignant neoplasm of breast (principal) ==

== ENCOUNTER 2018-05-17 08:07 | Outpatient (CLI) | payer BC | END 2018-05-17 08:08 | disposition home or self-care (01) | LOC: RAD 08:07 | DX: M54.5 Low back pain (principal); M54.12 Radiculopathy, cervical region ==

== ENCOUNTER 2018-05-20 10:17 | Outpatient (CLI) | payer BC | END 2018-05-20 10:18 | disposition home or self-care (01) | LOC: RAD 10:17 ==

== ENCOUNTER 2018-07-02 16:28 | Outpatient (CLI) | payer BC | END 2018-07-02 16:29 | disposition home or self-care (01) | LOC: RAD 16:28 ==